=== PATIENT | male | born 2000 | race Caucasian/White ===

== ENCOUNTER 2020-01-19 18:53 | Emergency (ER) | payer MEDICAID, OTHER ==
[2020-01-19 19:01] VITALS: BP 132/82
[2020-01-19] MEDS ORDERED: BUFFERED LIDOCAINE 10 ML SYRINGE SUBQ STA (19:10)
[2020-01-19] MEDS ORDERED: BACITRACIN ZINC OINT 1 PACKET TOP STA (19:25)
[2020-01-19] MEDS ORDERED: cephALEXin 250 MG CAPSULE PO STA (19:27)
--- NOTE | 2020-01-19 19:36 | ED Physician Documentation ---
History of Present Illness - Stated complaint Stated Complaint: R TOE PX - Chief complaint Chief Complaint: Wound - History obtained from History obtained from: Patient - History of Present Illness Timing: How many weeks ago (4) Pain level max: 7 Pain level now: 5 - Additonal information Additional information: Right great toe ingrown toenail. He tried to remove this at home, states pus drained. Came in for further removal and treatment. No fevers. Worse with palpation, better with rest Review of Systems Constitutional: denies: Fever, Chills Skin: denies: Rash PD PAST MEDICAL HISTORY - Past Medical History Past Medical History: No - Past Surgical History Past Surgical History: No - Present Medications Home Medications: Ambulatory Orders Medication Instructions Recorded Confirmed Cephalexin [Keflex] 500 mg PO Q6H #28 capsule 01/19/20 - Allergies Allergies/Adverse Reactions: Allergies Allergy/AdvReac Type Severity Reaction Status Date / Time No Known Drug Allergies Allergy Verified 01/19/20 19:00 - Social History Does the pt smoke?: No Smoking Status: Never smoker Does the pt drink ETOH?: No Does the pt have substance abuse?: No - Immunizations Immunizations are current?: Yes PD ED PE NORMAL - Vitals Vital signs reviewed: Yes - General General: Alert and oriented X 3, No acute distress - Extremities Extremities: Other (Tender to palpation over the medial aspect of the right great toe with an ingrown toenail, swelling.) - Neuro Neuro: Alert and oriented X 3 Results - Vitals Vitals: Vital Signs - 24 hr 01/19/20 18:57 Temperature 36.7 C Heart Rate 70 Respiratory 18 Rate Blood Pressure 132/82 H O2 Saturation 100 Oxygen O2 Source Room air Procedures - General procedure General procedure: - Partial removal of the right great toenail. Verbal consent obtained. 1% buffered lidocaine was used to anesthetize the area. Tolerated well. The medial aspect of the toenail was removed. Tolerated well. No complications. Dressing applied. PD MEDICAL DECISION MAKING - ED course Complexity details: considered differential, d/w patient ED course: Patient with a right great ingrown toenail. Anesthetized with 1% buffered lidocaine. The medial aspect of the toenail was removed. Tolerated well. Will place on antibiotics as well. We will have him follow-up with his doctor for further care. Patient counseled regarding signs and symptoms for which I believe and urgent re-evaluation would be necessary. Patient with good understanding of and agreement to plan and is comfortable going home at this time This document was made in part using voice recognition software. While efforts are made to proofread this document, sound alike and grammatical errors may occur. Departure - Departure Disposition: 01 Home, Self Care Clinical Impression: Ingrown toenail of left foot Condition: Good Instructions: ED Ingrown Toenail Excised Follow-Up: Allison Fermin DPM [Provider Admit Priv/Credential] - Vivek Adrian DPM [Physician No Access] - Prescriptions: Cephalexin [Keflex] 500 mg PO Q6H #28 capsule Comments: Take all antibiotics until gone. Return if you worsen. You should soak the area in warm water 2-3 times a day. Follow-up with podiatry for further care. Discharge Date/Time: 01/19/20 19:52
[2020-01-19] MEDS ORDERED: BACITRACIN ZINC OINT 1 PACKET TOP ONE (19:41)
== END 2020-01-19 19:52 | disposition home or self-care (01) ==
LOC: ED 18:53
DX: L60.0 Ingrowing nail (principal)
CPT/HCPCS: 11750; 99282; 99283; A9270

== ENCOUNTER 2020-06-17 11:01 | Emergency (ER) | payer MEDICAID ==
[2020-06-17] MEDS ORDERED: ACETAMINOPHEN 325 MG TABLET PO STA (11:14)
--- NOTE | 2020-06-17 11:16 | ED Physician Documentation ---
PD HPI UPPER EXT INJURY - Stated complaint Stated Complaint: RT MIDDLE FINGER INJ - Chief complaint Chief Complaint: Trauma Ext - History obtained from History obtained from: Patient (He was working at home and crushed his right middle finger under a beam. No other injuries. Tetanus is up-to-date.) Review of Systems Constitutional: reports: Reviewed and negative Cardiac: reports: Reviewed and negative Respiratory: reports: Reviewed and negative PD PAST MEDICAL HISTORY - Past Surgical History Past Surgical History: No - Present Medications Home Medications: Ambulatory Orders Medication Instructions Recorded Confirmed No Known Home Medications 06/17/20 06/17/20 - Allergies Allergies/Adverse Reactions: Allergies Allergy/AdvReac Type Severity Reaction Status Date / Time No Known Drug Allergies Allergy Verified 06/17/20 11:03 - Social History Does the pt smoke?: No Smoking Status: Never smoker Does the pt drink ETOH?: Yes ETOH Use: Wine, Beer, Liquor Does the pt have substance abuse?: No Substance Use and Type: Marijuana - Immunizations Immunizations are current?: No PD ED PE NORMAL - Vitals Vital signs reviewed: Yes - General General: Alert and oriented X 3, No acute distress - Extremities Extremities: Other (There is a small shallow curvilinear laceration on the palmar side of the right middle finger at the level of the DIP. Intact range of motion cap refill. He does have some bony tenderness there.) - Neuro Neuro: Alert and oriented X 3, Normal speech Results - Vitals Vitals: Vital Signs - 24 hr 06/17/20 06/17/20 06/17/20 11:04 11:17 11:55 Temperature 36.5 C 36.7 C Heart Rate 61 64 65 Respiratory 16 16 16 Rate Blood Pressure 120/76 130/68 128/65 O2 Saturation 100 99 99 Oxygen O2 Source Room air - Rads (name of study) R 2ND FINGER Radiology: EMP read contemporaneously (NEGATIVE) Departure - Departure Disposition: 01 Home, Self Care Clinical Impression: Crush injury to finger Qualifiers: Encounter type: initial encounter Qualified Code(s): S67.10XA - Crushing injury of unspecified finger(s), initial encounter Finger abrasion Qualifiers: Encounter type: initial encounter Qualified Code(s): S60.419A - Abrasion of unspecified finger, initial encounter Condition: Good Record reviewed to determine appropriate education?: Yes Instructions: ED Abrasion Comments: Wash with soap and water and keep it covered with a Band-Aid. Return for signs of infection such as increased pain, swelling, drainage. Forms: Activity restrictions Discharge Date/Time: 06/17/20 11:57
[2020-06-17 11:57] VITALS: BP 128/65
--- NOTE | 2020-06-17 12:02 | XRAY Report ---
PROCEDURE: Finger(s) RT INDICATIONS: rmf inj TECHNIQUE: AP hand, 2 views of the right third finger(s) acquired. COMPARISON: None FINDINGS: Bones: No fractures or dislocations. No suspicious bony lesions. Soft tissues: No suspicious soft tissue calcifications. IMPRESSION: No fracture. No osseous lesion. If there is continued clinical concern for pathology, then repeat junaid in film radiographs (7-10 days) or advanced imaging (CT, MR, bone scan) should be considered for furt her evaluation. Reviewed by: Christianne Smith MD, PhD on 06/17/2020 12:00 PM PDT Approved by: Christianne Smith MD, PhD on 06/17/2020 12:00 PM PDT Station ID: [id number]
== END 2020-06-17 11:57 | disposition home or self-care (01) ==
LOC: ED 11:01
DX: S67.192A Crushing injury of right middle finger, initial encounter (principal); W23.1XXA Caught, crushed, jammed, or pinched between stationary objects, initial encounter; Y92.009 Unspecified place in unspecified non-institutional (private) residence as the place of occurrence of the external cause
CPT/HCPCS: 73140; 99282; 99283; A9270

== ENCOUNTER 2020-06-18 15:55 | Emergency (ER) | payer MEDICAID ==
--- NOTE | 2020-06-18 16:40 | ED Physician Documentation ---
PD HPI OPHTHO - Stated complaint Stated Complaint: FB IN RT EYE - Chief complaint Chief Complaint: Heent - History obtained from History obtained from: Patient - History of Present Illness Timing - onset: Today Timing - details: Abrupt onset, Still present (he was putting up framing board and some sawdust or such dropped into his eye. Has pain in right eye, even after flushing it out. Was not working power tools at the time.) Location: Right Quality / character: Aching Associated symptoms: Tearing, FB sensation. No: Redness, Swelling Contributing factors: FB (sawdust or such) Similar symptoms before: Has not had sx before Review of Systems Constitutional: denies: Fever, Chills Eyes: reports: Irritation. denies: Loss of vision, Photophobia Nose: denies: Rhinorrhea / runny nose, Congestion Throat: denies: Sore throat Respiratory: denies: Cough Skin: denies: Abrasion (s), Laceration (s) PD PAST MEDICAL HISTORY - Past Medical History Past Medical History: No - Past Surgical History Past Surgical History: No - Present Medications Home Medications: Ambulatory Orders Medication Instructions Recorded Confirmed No Known Home Medications 06/17/20 06/17/20 - Allergies Allergies/Adverse Reactions: Allergies Allergy/AdvReac Type Severity Reaction Status Date / Time No Known Drug Allergies Allergy Verified 06/18/20 16:01 - Social History Does the pt smoke?: No Smoking Status: Never smoker Does the pt drink ETOH?: Yes Does the pt have substance abuse?: No - Immunizations Immunizations are current?: No - POLST Patient has POLST: No PD ED PE NORMAL - Vitals Vital signs reviewed: Yes - General General: Alert and oriented X 3, No acute distress (does appear uncomfortable with eye blinking. Feels much better with proparacaine. ), Well developed/nourished - HEENT HEENT: PERRL, EOMI PD ED PE EXPANDED - Eyes Eyes: PERRL, EOMI, Normal eyelids, Injected conj/sclera (some redness), Corneal FB (small bit of sawdust under upper lid, removed with just cotton tip applicator. ), Fluorescein uptake (there is a rounded area of dye uptake about 8-10 o'clock position to pupil, superficial, c/w scouring effect of the prior sawdust. No deep lacs. ) Results - Vitals Vitals: Vital Signs - 24 hr 06/18/20 06/18/20 06/18/20 15:57 16:32 17:36 Temperature 37.1 C 37.1 C 37.0 C Heart Rate 76 76 76 Respiratory 18 18 16 Rate Blood Pressure 121/92 H 131/91 H 128/88 H O2 Saturation 97 100 100 Oxygen O2 Source Room air PD MEDICAL DECISION MAKING - ED course Complexity details: considered differential, d/w patient Departure - Departure Disposition: Home, Self Care Clinical Impression: Corneal abrasion Qualifiers: Encounter type: initial encounter Laterality: right Qualified Code(s): S05.01XA - Injury of conjunctiva and corneal abrasion without foreign body, right eye, initial encounter Corneal foreign body Qualifiers: Encounter type: initial encounter Laterality: right Qualified Code(s): T15.01XA - Foreign body in cornea, right eye, initial encounter Condition: Stable Record reviewed to determine appropriate education?: Yes Instructions: ED Eye Injury Corneal Abrasion Comments: Is a small bit of sawdust or wood floating around that came out easily. You do have a residual corneal abrasion that appears superficial and should heal well within a day or 2. You can use the erythromycin antibiotic ointment every 3 or 4 hours as needed for eye discomfort with the ointment part being which useful to lubricate over the surface of the eye. Alternatively some eyedrops such as refresh or Lacri-Lube may work as well. These are available [id number]. Tylenol ibuprofen if needed for pains. Just left alone this should likely heal over the next couple of days but the ointments or lubricants help be less uncomfortable in the meantime. Recheck if not completely better over the next couple of days and return if worsening. Discharge Date/Time: 06/18/20 17:36
[2020-06-18] MEDS ORDERED: ERYTHROMYCIN OPHTH OINT 1 GM TUBE RIGHTEYE STA (17:23)
[2020-06-18] MEDS ORDERED: IBUPROFEN 600 MG TABLET PO STA (17:23)
[2020-06-18 17:37] VITALS: BP 128/88
== END 2020-06-18 17:36 | disposition home or self-care (01) ==
LOC: ED 15:55
DX: T15.01XA Foreign body in cornea, right eye, initial encounter (principal); X58.XXXA Exposure to other specified factors, initial encounter; Y93.H3 Activity, building and construction
CPT/HCPCS: 65205; 99282; 99283; A9270; J3490